=== PATIENT | male | born 1985 | race Caucasian/White ===

== ENCOUNTER 2020-06-17 20:05 | Emergency (ER) | payer MEDICAID, SELFPAY ==
[2020-06-17 20:05] VITALS: BP 117/74; PULSE 117; RESP 18; TEMP 36.4; O2SAT 97; BMI 30.2
--- NOTE | 2020-06-17 20:29 | ED.DCSUM_ITS ---
- ER Visit Summary Date of Service: 06/17/20 Chief Complaint: Abdominal pain History of Present Illness: The patient is a 35 M who presents with abdominal pain that began today. Patient states he was drinking tequila tonight and his pain has been getting progressively worse over the past 5 hours. Patient describes the pain is sharp. Patient states the pain is over the epigastric area. Patient admits to nausea and vomiting. Patient also admits to diarrhea. Patient denies any dysuria or hematuria. Patient denies any fevers or chills. Patient states the pain does radiate up into his chest. Physical Examination: Vital signs are stable except for mild tachycardia of 117. Patient is afebrile. Patient is in no acute distress. Oral mucosa is pink and moist. Neck is supple. Trachea is midline. There is no JVD. Heart was regular and tachycardic. Lungs are clear and equal bilaterally. Abdomen is soft. There is diffuse tenderness but worse over the epigastric area. There is no rebound. There is voluntary guarding. Incisions are healing well without any signs of infection. Cranial nerves II through XII are intact. There are no focal motor or sensory deficits noted. Extremities are intact. There is no calf tenderness or edema. Test Results: CBC, comprehensive metabolic profile, and lipase were obtained and were all within normal limits. Emergency Department Course and Treatment: Patient was given IV fluids and Zofran. Patient requested that no narcotics were given. Patient was given a GI cocktail. With normal lab results, I do not feel imaging is necessary at this time. Patient was instructed to avoid alcohol. Patient was given a prescription for Prilosec. Patient was instructed to follow-up with his primary care physician in 5 to 7 days. Patient was also instructed to follow-up with his surgeon as scheduled. Patient understood and was agreeable with the plan. All questions were answered. Disposition: Discharge home Impression: 1. Abdominal pain This note was generated with [employer] dictation software. It may contain incorrect words, spelling, and punctuation that were not noted in review of the chart prior to signing ED Disposition - Plan for ED Patient: Disposition: Home or Assisted Living Diagnosis: Epigastric abdominal pain of unknown etiology Instructions: ED Unknown Causes of Abdominal Pain Male, ED PEPTIC ULCER vs GASTRITIS Prescriptions: Omeprazole [Prilosec] 20 mg PO DAILY #30 cap Prescription Printed Referrals: Hubert Verdugo MD [Primary Care Provider] - 5-7 Days
[2020-06-17] MEDS: Ondansetron 4 MG/2 ML Vial IV (20:35)
[2020-06-17] MEDS: 0.9% Normal Saline 1,000 ML 1000 ML IV (20:35)
[2020-06-17 20:38] LABS: Absolute Lymphocyte Count 4.03 X10^3/uL (0.83-4.51); Absolute Neutrophil Count 5.4 X10^3/uL (2.0-7.7); Basophil# 0.09 X10^3/uL; Basophil% 0.9 % (0-1); Eosinophil# 0.09 X10^3/uL; Eosinophils% 0.9 % (0-5); Hematocrit 37.8 % (40-54); Hemoglobin 13.2 g/dL (13.0-16.5); Lymphocyte # 4.03 X10^3/ul (4.0); Lymphocyte % 38.8 % (19-41); Mean Corp Hgb Conc 34.9 g/dL (32-36); Mean Corpuscular Hgb 30.1 pg (27.0-32.0); Mean Corpuscular Volume 86.3 fL (80-94); Mean Platelet Vol. 9.1 fl (6.2-12.0); Monocyte% 5.8 % (0-10); NRBC Flagged by Analyzer 0 % (0-5); Neutrophil % 51.8 % (47-70); Platelet Count 248 K/mm3 (150-450); Red Blood Count 4.38 M/mm3 (4.6-6.2); White Blood Count 10.4 K/mm3 (4.4-11.0)
[2020-06-17 20:51] LABS: ALB/GLOB Ratio 1.1 RATIO (0.9-2.4); AST(SGOT) 19 U/L (15-37); Alanine Aminotransfer ALT/SGPT 45 U/L (16-61); Albumin, Serum 3.8 g/dL (3.2-5.0); Alkaline Phosphatase 153 U/L (45-117); Anion Gap 9 (5-15); BUN 13 mg/dL (7-18); BUN/Creat Ratio 13.8 RATIO (10-20); Calcium,Total 8.7 mg/dL (8.5-10.1); Chloride 110 mmol/L (98-107); Creatinine, Serum 0.94 mg/dL (0.70-1.30); EST Glomerular Filtration Rate 98 mL/min (>60); Est Glom Filt Rate - Afr Amer 119 mL/min (>60); Estimated Creatinine Clearance 111.77 ml/min; Globulin 3.4 g/dL (2.2-4.2); Glucose 104 mg/dL (74-106); Lipase 77 U/L (73-393); Potassium 3.8 mmol/L (3.5-5.1); Protein, Total 7.2 g/dL (6.4-8.2); Sodium Level 144 mmol/L (136-145)
[2020-06-17] MEDS: Mag Hydrox/Al Hydrox/Simeth 30 ML UDC PO (21:37)
== END 2020-06-17 21:41 | disposition home or self-care (01) ==
PROVIDERS: Emergency Provider Emergency Medicine; PCP Family Medicine
DX: K29.70 Gastritis, unspecified, without bleeding (principal); F17.210 Nicotine dependence, cigarettes, uncomplicated; Z90.49 Acquired absence of other specified parts of digestive tract; Z86.14 Personal history of Methicillin resistant Staphylococcus aureus infection
CPT/HCPCS: 80053; 83690; 85025; 96361; 96374; 99284; J7030; A4216; J2405

== ENCOUNTER 2024-10-24 20:53 | Inpatient (IN) | payer MEDICAID, SELFPAY ==
[2024-10-24 20:54] VITALS: BP 174/111; PULSE 117; RESP 18; TEMP 36.9; O2SAT 96
[2024-10-24 20:55] VITALS: BMI 29.2
--- NOTE | 2024-10-24 21:09 | EDS_ITS ---
HPI <PRATIK Alejandra - Last Filed: 10/24/24 21:55> History of Present Illness Chief Complaint: Substance Abuse Narrative Narrative: Patient presenting today requesting to detox from alcohol. He reports that he drinks a pint of vodka daily and has been drinking heavily since June. He reports that he was sober for quite some time prior to this. He reports that he last drank about an hour prior to arrival, he has had about 60 mL of vodka today. He does not feel he is currently going through withdrawal. He denies any history of withdrawal seizures. He reports occasional cocaine use and last used New Year's Alexus. He does report a PMH of anxiety, depression, and Tourette's. PFSH <PRATIK Alejandra - Last Filed: 10/24/24 21:55> PFSH Medical History GERD (gastroesophageal reflux disease) Anxiety Depression Tobacco abuse Alcohol abuse Home Medications ?Medication ?Instructions ?Recorded ?Last Taken ?Type fluoxetine 40 mg capsule 40 mg PO DAILY 06/17/20 Unknown History hydroxyzine HCl 10 mg tablet 10 mg PO PRN PRN Anxiety 06/17/20 Unknown History omeprazole 20 mg capsule,delayed 20 mg PO DAILY #30 caps 06/17/20 Unknown Rx release mirtazapine 15 mg tablet (Remeron) 50 mg PO QHS 10/24/24 Unknown History Allergy/AdvReac Type Severity Reaction Status Date / Time codeine Allergy Itching Verified 10/24/24 20:56 Social History Smoking Status: Current every day smoker tobacco type: cigarettes alcohol intake: current alcohol intake frequency: 3 or more drinks per day Alcohol type: hard liquor substance use type: crack/cocaine ROS <PRATIK Alejadnra - Last Filed: 10/24/24 21:55> ROS ED Constitutional Constitutional ED: Denies chills or fever(s) Cardiovascular Cardiovascular: Denies chest pain Respiratory/Chest Respiratory/Chest: Denies dyspnea Gastrointestinal Gastrointestinal: Denies abdominal pain, nausea or vomiting Musculoskeletal Musculoskeletal: Denies arthralgias or myalgias Integumentary Denies rash Neurologic Neurologic: Denies weakness Psychiatric Psychiatric: Reports anxiety and depression; Denies suicidal ideation or suicidal thoughts EXAM <PRATIK Alejandra - Last Filed: 10/24/24 21:55> Physical Exam Const Vital Signs: 10/24/24 20:54 Temperature 98.4 F Temperature Source Oral Pulse Rate 117 H Respiratory Rate 18 Blood Pressure 174/111 H Blood Pressure Mean 132 Pulse Ox 96 Oxygen Delivery Method Room Air Positive well nourished, well developed and no apparent distress General Appearance ED: well developed HEENT Reports normocephalic and head/scalp atraumatic Mouth ED: Yes moist mucous membranes normal Eyes PERRL and EOMs intact bilaterally Neck full ROM and supple Chest Wall inspection of chest normal Resp normal respiratory effort and clear to auscultation bilaterally Cardio regular rate and regular rhythm GI soft to palpation, non-tender, non-distended and no masses Back/Spine normal ROM and normal to inspection Extremity normal to inspection and full ROM Neuro oriented x3, CN's II-XII intact bilaterally, moves all extremities, no focal motor deficits and no sensory deficits noted Sensorium / Orientation: awake and alert Psych mental status grossly normal and thought process normal Skin no rashes or lesions noted and no wounds <Jaswant Reece MD - Last Filed: 10/24/24 22:43> Physical Exam Const Vital Signs: 10/24/24 20:54 Temperature 98.4 F Temperature Source Oral Pulse Rate 117 H Respiratory Rate 18 Blood Pressure 174/111 H Blood Pressure Mean 132 Pulse Ox 96 Oxygen Delivery Method Room Air MDM <PRATIK Alejandra - Last Filed: 10/24/24 21:55> [facility] MDM Narrative Medical decision making narrative: Patient presenting today requesting to detox from alcohol. He is a daily drinker and drinks about a pint of vodka daily, he has been drinking heavily since June. He does experience withdrawal symptoms when he does not drink consisting of tremors, nausea, and loose stools. He last drink about an hour prior to arrival and does not feel he is currently withdrawing. He denies withdrawal seizure history. He has detoxed in the past. Labs will be obtained and I will contact the hospitalist for admission. His alcohol levels is elevated at 347. His potassium is slightly low at 3.1, he will be given potassium replacement and magnesium level will be obtained. Spoke with Dr. Fermin, he will be admitted in stable condition. Lab Data Attestation: I reviewed the patient's lab results. Lab results narrative: Potassium 3.1 total bilirubin 1.4, alkaline phosphatase 129, alcohol level 347 Labs: Laboratory Results - last 24 hr 10/24/24 10/24/24 21:15 21:20 WBC 9.6 RBC 5.02 Hgb 15.4 Hct 42.4 MCV 84.5 MCH 30.7 MCHC 36.3 H RDW Std Deviation 36.0 RDW Coeff of Lokesh 11.8 Plt Count 227 MPV 8.7 Immature Gran % (Auto) 0.200 Neut % (Auto) 58.3 Lymph % (Auto) 37.0 [place] % (Auto) 3.7 Eos % (Auto) 0.2 Baso % (Auto) 0.6 Absolute Neuts (auto) 5.6 Absolute Lymphs (auto) 3.56 Nucleated RBC % 0 Sodium 141 Potassium 3.1 L Chloride 108 H Carbon Dioxide 23.0 Anion Gap 10 BUN 11 Creatinine 0.94 Estim Creat Clear Calc 122.85 Est GFR (MDRD) Af Amer 116 Est GFR (MDRD) Non-Af 96 BUN/Creatinine Ratio 11.7 Glucose 109 H Calcium 8.7 Total Bilirubin 1.40 H AST 29 ALT 47 Alkaline Phosphatase 129 H Total Protein 7.8 Albumin 4.2 Globulin 3.6 Albumin/Globulin Ratio 1.2 Urine Opiates Screen NEGATIVE Urine Methadone Screen NEGATIVE Ur Barbiturates Screen NEGATIVE Ur Phencyclidine Scrn NEGATIVE Ur Amphetamines Screen NEGATIVE MDMA (Ecstasy) Screen NEGATIVE U Benzodiazepines Scrn NEGATIVE Urine Cocaine Screen NEGATIVE U Cannabinoids Screen NEGATIVE Ur Drug Screen Comment Ethyl Alcohol 347.0 H* <Jaswant Reece MD - Last Filed: 10/24/24 22:43> MDM MDM Narrative Medical decision making narrative: Patient presenting today requesting to detox from alcohol. He is a daily drinker and drinks about a pint of vodka daily, he has been drinking heavily since June. He does experience withdrawal symptoms when he does not drink consisting of tremors, nausea, and loose stools. He last drink about an hour prior to arrival and does not feel he is currently withdrawing. He denies withdrawal seizure history. He has detoxed in the past. Labs will be obtained and I will contact the hospitalist for admission. His alcohol levels is elevated at 347. His potassium is slightly low at 3.1, he will be given potassium replacement and magnesium level will be obtained. Spoke with Dr. Fermin, he will be admitted in stable condition. Dr. Reece: I have personally performed a face to face assessment of the patient and have reviewed the MELIZA Note. I performed a substantive portion of the visit including all aspects of the following. My estrada findings include: History is patient desires detox from alcohol, states he drinks a pint of vodka daily. Exam is afebrile. Vital signs noted. Cardiovascular examination reveals mild tachycardia. Lungs are clear to auscultation bilaterally. Abdomen soft and nontender with positive bowel sounds. Neurological examination no noted tremors. No noted gooseflesh. No active signs of withdrawal. Medical Decision Making: Check labs. Potassium slightly low at 3.1 which was replaced orally. Her magnesium. Blood alcohol level elevated at 347. Admit to the general medical floor for detox. Other additions or changes: [None] Lab Data Labs: Laboratory Results - last 24 hr 10/24/24 10/24/24 21:15 21:20 WBC 9.6 RBC 5.02 Hgb 15.4 Hct 42.4 MCV 84.5 MCH 30.7 MCHC 36.3 H RDW Std Deviation 36.0 RDW Coeff of Lokesh 11.8 Plt Count 227 MPV 8.7 Immature Gran % (Auto) 0.200 Neut % (Auto) 58.3 Lymph % (Auto) 37.0 [place] % (Auto) 3.7 Eos % (Auto) 0.2 Baso % (Auto) 0.6 Absolute Neuts (auto) 5.6 Absolute Lymphs (auto) 3.56 Nucleated RBC % 0 Sodium 141 Potassium 3.1 L Chloride 108 H Carbon Dioxide 23.0 Anion Gap 10 BUN 11 Creatinine 0.94 Estim Creat Clear Calc 122.85 Est GFR (MDRD) Af Amer 116 Est GFR (MDRD) Non-Af 96 BUN/Creatinine Ratio 11.7 Glucose 109 H Calcium 8.7 Total Bilirubin 1.40 H AST 29 ALT 47 Alkaline Phosphatase 129 H Total Protein 7.8 Albumin 4.2 Globulin 3.6 Albumin/Globulin Ratio 1.2 Urine Opiates Screen NEGATIVE Urine Methadone Screen NEGATIVE Ur Barbiturates Screen NEGATIVE Ur Phencyclidine Scrn NEGATIVE Ur Amphetamines Screen NEGATIVE MDMA (Ecstasy) Screen NEGATIVE U Benzodiazepines Scrn NEGATIVE Urine Cocaine Screen NEGATIVE U Cannabinoids Screen NEGATIVE Ur Drug Screen Comment Ethyl Alcohol 347.0 H* Management Discussion w/another healthcare provider: Hospitalist Discharge Plan Dx/Rx/DC Orders Clinical Impression: Alcohol abuse, Desire for detoxification, Acute alcohol intoxication, Hypokalemia Disposition Disposition: Acute Care Hospital [facility]
[2024-10-24 21:33] LABS: Absolute Lymphocyte Count 3.56 X10^3/uL (0.83-4.51); Absolute Neutrophil Count 5.6 X10^3/uL (2.0-7.7); Basophil# 0.06 X10^3/uL; Basophil% 0.6 % (0-1); Eosinophil# 0.02 X10^3/uL; Eosinophils% 0.2 % (0-5); Hematocrit 42.4 % (40-54); Hemoglobin 15.4 g/dL (13.0-16.5); Lymphocyte # 3.56 X10^3/ul (0.83-4.51); Mean Corp Hgb Conc 36.3 g/dL (32-36); Mean Corpuscular Hgb 30.7 pg (27.0-32.0); Mean Corpuscular Volume 84.5 fL (80-94); Mean Platelet Vol. 8.7 fl (6.2-12.0); Monocyte# 0.36 X10^3/uL; Monocyte% 3.7 % (0-10); NRBC Flagged by Analyzer 0 % (0-5); Neutrophil # 5.59 X10^3/uL (2.7-7.7); Neutrophil % 58.3 % (47-70); Platelet Count 227 K/mm3 (150-450); RBC Distribution Width CV 11.8 % (11.6-14.6); Red Blood Count 5.02 M/mm3 (4.6-6.2); White Blood Count 9.6 K/mm3 (4.4-11.0)
[2024-10-24 21:48] LABS: Amphetamine Urine VISTA NEGATIVE (<1000 ng/mL); Barbiturate Urine VISTA NEGATIVE (< 200 ng/mL); Benzodiazepine Urine VISTA NEGATIVE (< 200 ng/mL); Cocaine Urine VISTA NEGATIVE (< 300 ng/mL); Ecstacy Urine VISTA NEGATIVE (< 500 ng/mL); Methadone Urine VISTA NEGATIVE (< 300 ng/mL); PCP Urine VISTA NEGATIVE (< 25 ng/mL); THC Urine VISTA NEGATIVE (< 50 ng/mL); Vista UDS pH Range 6
[2024-10-24 21:50] LABS: ALB/GLOB Ratio 1.2 RATIO (0.9-2.4); AST(SGOT) 29 U/L (15-37); Alanine Aminotransfer ALT/SGPT 47 U/L (16-61); Albumin, Serum 4.2 g/dL (3.2-5.0); Alkaline Phosphatase 129 U/L (45-117); Anion Gap 10 (5-15); BUN 11 mg/dL (7-18); BUN/Creat Ratio 11.7 RATIO (10-20); Calcium,Total 8.7 mg/dL (8.5-10.1); Chloride 108 mmol/L (98-107); Creatinine, Serum 0.94 mg/dL (0.70-1.30); EST Glomerular Filtration Rate 96 mL/min (>60); Est Glom Filt Rate - Afr Amer 116 mL/min (>60); Estimated Creatinine Clearance 122.85 ml/min; Globulin 3.6 g/dL (2.2-4.2); Glucose 109 mg/dL (74-106); Potassium 3.1 mmol/L (3.5-5.1); Protein, Total 7.8 g/dL (6.4-8.2); Sodium Level 141 mmol/L (136-145)
--- NOTE | 2024-10-24 22:27 | HP.PCM.HOS_ITS ---
HPI - General General Date of Service: 10/24/24 Chief Complaint: EtOH detox HPI Narrative SHARMILA MCBRIDE, is a 39 M who presented to the emergency department at [facility] on 10/24/2024 requesting detox from alcohol. Patient reported that he drinks about a pint of vodka daily and has been drinking heavily since about June. Patient reported that he was sober for quite a period of time prior to this. His last drink was about an hour prior to presentation at which time he had about 60 mL of vodka. At the time of presentation he denied any withdrawal symptoms. He denies a history of withdrawal seizures and does report also some occasional cocaine use with his last use being on 's Alexus. He does have a history of Tourette's, anxiety, and depression. He also uses tobacco on a regular basis by smoking cigarettes. Vital signs on presentation showed a temperature of 98.4, heart rate was 117, blood pressure was 174/111, respiratory was 18 and pulse ox was 96% on room air. CBC was unremarkable. Chemistry panel showed mild hypokalemia with a potassium of 3.1 but was otherwise unremarkable. Bilirubin was elevated 1.4 with normal liver function enzymes otherwise. Toxicology screen was negative. As alcohol level was 347.0. He was given 1 dose of oral phenobarbital in the emergency department and given 40 mill colons p.o. potassium. Magnesium level was added on when potassium level was found to be low and is pending at the time of admission. [facility] Medical History GERD (gastroesophageal reflux disease) Anxiety Depression Tobacco abuse Alcohol abuse Home Medications ?Medication ?Instructions ?Recorded ?Last Taken ?Type fluoxetine 40 mg capsule 40 mg PO DAILY 06/17/20 Unknown History hydroxyzine HCl 10 mg tablet 10 mg PO PRN PRN Anxiety 06/17/20 Unknown History omeprazole 20 mg capsule,delayed 20 mg PO DAILY #30 caps 06/17/20 Unknown Rx release mirtazapine 15 mg tablet (Remeron) 50 mg PO QHS 10/24/24 Unknown History Allergy/AdvReac Type Severity Reaction Status Date / Time codeine Allergy Itching Verified 10/24/24 20:56 no significant family history Surgical History (Updated 10/24/24 @ 22:[address] Mahsa Fermin, DO) History of cholecystectomy Social History (Updated 10/24/24 @ 22:[address] Mahsa Fermin DO) Smoking Status: Current every day smoker tobacco type: cigarettes alcohol intake: current alcohol intake frequency: 3 or more drinks per day Alcohol type: hard liquor substance use type: marijuana and crack/cocaine ROS Constitutional Constitutional: Reports malaise; Denies anorexia, change in weight, chills, fatigue, fever(s), night sweats, weakness or other Eyes Eyes: Denies blurry vision, change in eye color, change in vision, discharge from eye(s), double vision, erythema, eye pain, loss of vision or other ENT HEENT: Denies abnormal hearing, dysphagia, ear pain, epistaxis, headache(s), hearing loss, nasal congestion, nasal discharge, post nasal drip, sinus pressure, sore throat or other Cardiovascular Cardiovascular: Denies chest pain, claudication, dyspnea on exertion, edema, lightheadedness, orthopnea, palpitations, paroxysmal nocturnal dyspnea, rapid heart rate, syncope or other Respiratory/Chest Respiratory/Chest: Denies cough, dyspnea, excessive phlegm production, hemoptysis, productive cough, shortness of breath at rest, shortness of breath with exertion, wheezing or other Gastrointestinal Gastrointestinal: Reports nausea; Denies abdominal pain, coffee ground emesis, constipation, diarrhea, dyspepsia, hematemesis, hematochezia, loose stools, melena, vomiting or other Genitourinary Genitourinary: Denies burning urination, difficulty urinating, dysuria, hematuria, nocturia, urinary frequency, urinary hesitancy, urinary incontinence, urinary urgency or other Musculoskeletal Musculoskeletal: Reports myalgias; Denies arthralgias, back pain, joint pain, joint stiffness, joint swelling, neck pain or other Neurologic Neurologic: Denies abnormal gait, abnormal speech, confusion, disequilibrium, dizziness, focal weakness, headache(s), numbness, paresthesias, seizure-like activity, seizures, syncope, tingling, tremor(s) or other Psychiatric Psychiatric: Reports anxiety and depression; Denies homicidal ideation, suicidal ideation or other Endocrine Endocrinology: Denies change in body appearance, cold intolerance, excessive sweating, heat intolerance, polydipsia, polyuria or other Hematologic/Lymphatic Hematologic/Lymphatic: Denies anemia, easy bleeding, easy bruising, lymphadenopathy or other Allergic/Immunologic Allergic/Immunologic: Denies rhinitis, hives, eczemia, asthma or other Vital Signs Vital Signs Vital Signs: 10/24/24 20:54 Temperature 98.4 F Temperature Source Oral Pulse Rate 117 H Respiratory Rate 18 Blood Pressure 174/111 H Blood Pressure Mean 132 Pulse Ox 96 Oxygen Delivery Method Room Air Weight Weight: 92.3 kg Body Mass Index (BMI) 29.2 Physical Exam Const alert, oriented x3, no apparent distress and well nourished; Negative for average body habitus Constitutional Narrative: Overweight, middle-aged, white male, lying in bed, appears anxious, father at bedside, does not appear toxic General Appearance: cooperative HEENT normocephalic, head/scalp atraumatic, hearing grossly normal bilaterally and moist oral mucous membranes HEENT Narrative: Mallampati 3, no thrush Resp normal respiratory effort, no retractions, no use of accessory muscles and clear to auscultation bilaterally Auscultation: Negative for rales, rhonchi or wheezes Cardio regular rate, regular rhythm, S1 normal heart sound, S2 normal heart sound, no murmurs, no rub, no gallops and no clicks GI normal to inspection, nondistended, normoactive bowel sounds, soft to palpation and non-tender Extremity no clubbing, cyanosis or edema Extremity Narrative: Pedal pulses are 2+ Neuro oriented x3, moves all extremities and no focal motor deficits Speech: speech normal Psych Psych Narrative: Affect is flat, mood seems somewhat depressed but patient makes good eye contact Results Lab / Micro Data 10/24/24 21:20 10/24/24 21:20 Labs: Laboratory Results - last 24 hr 10/24/24 21:15: Urine Opiates Screen NEGATIVE, Urine Methadone Screen NEGATIVE, Ur Barbiturates Screen NEGATIVE, Ur Phencyclidine Scrn NEGATIVE, Ur Amphetamines Screen NEGATIVE, MDMA (Ecstasy) Screen NEGATIVE, U Benzodiazepines Scrn NEGATIVE, Urine Cocaine Screen NEGATIVE, U Cannabinoids Screen NEGATIVE, Ur Drug Screen Comment 10/24/24 21:20: WBC 9.6, RBC 5.02, Hgb 15.4, Hct 42.4, MCV 84.5, MCH 30.7, MCHC 36.3 H, RDW Std Deviation 36.0, RDW Coeff of Lokesh 11.8, Plt Count 227, MPV 8.7, Immature Gran % (Auto) 0.200, Neut % (Auto) 58.3, Lymph % (Auto) 37.0, [place] % (Auto) 3.7, Eos % (Auto) 0.2, Baso % (Auto) 0.6, Absolute Neuts (auto) 5.6, Absolute Lymphs (auto) 3.56, Nucleated RBC % 0, Sodium 141, Potassium 3.1 L, C hloride 108 H, Carbon Dioxide 23.0, Anion Gap 10, BUN 11, Creatinine 0.94, Estim Creat Clear Calc 122.85, Est GFR (MDRD) Af Amer 116, Est GFR (MDRD) Non-Af 96, BUN/Creatinine Ratio 11.7, Glucose 109 H, Calcium 8.7, Total Bilirubin 1.40 H, AST 29, ALT 47, Alkaline Phosphatase 129 H, Total Protein 7.8, Albumin 4.2, Globulin 3.6, Albumin/Globulin Ratio 1.2, Ethyl Alcohol 347.0 H* Assessment & Plan Assessment/Plan (1) Hypokalemia: (2) Acute alcohol intoxication: (3) Desire for detoxification: (4) Alcohol abuse: (5) Elevated blood pressure reading: (6) Tachycardia: PLAN: Plan Acute alcohol intoxication with desire for detoxification and pending withdrawal -Alcohol level on presentation was 347 -CIWA with as needed Ativan -Phenobarbital taper as ordered -Thiamine and folate -As needed medication for assistance with withdrawal symptom management -180 consultation Hypokalemia -Potassium replacement with 40 mill equivalents p.o. -Repeat lab in a.m. -Magnesium level is pending Tachycardia -Likely related to the above -Monitor Elevated blood pressure without history of hypertension -Suspect related to pending withdrawal symptoms -Will continue to monitor -As needed hydralazine available for systolic greater than 150 Tobacco abuse -Recommend cessation -Nicotine patch available Polysubstance abuse -Patient reports he also intermittently will use other substances -Last use of cocaine was on New Year's Alexus which she does use intermittently -Also uses marijuana intermittently but states this predominantly makes him paranoid so he avoids it typically GERD -Continue home PPI Anxiety/depression -Continue home fluoxetine -Continue mirtazapine -Continue as needed hydroxyzine DVT prophylaxis -Low risk -Encourage early and frequent ambulation CODE STATUS -Full code Charges/Coding Visit Charges Inpatient E&M: 87561 Init Hosp L2
[2024-10-24] MEDS: Potassium Chloride Oral Tablet 20 MEQ 40 MEQ PO (22:36)
[2024-10-24 22:50] LABS: Magnesium 2.2 mg/dL (1.6-2.6)
[2024-10-24 22:54] VITALS: PULSE 118
[2024-10-24 23:17] VITALS: BP 150/100; PULSE 116; RESP 18; TEMP 36.7; O2SAT 99
[2024-10-24 23:49] VITALS: BP 131/92; PULSE 114; RESP 18; TEMP 36.6; O2SAT 98
[2024-10-24 23:51] VITALS: BMI 27.8
[2024-10-25] VITALS (7 sets, daily range): BP systolic 119–165; BP diastolic 76–108; PULSE 63–110; RESP 16–18; TEMP 36.4–37; O2SAT 94–99
[2024-10-25] MEDS: 0.9% Saline Lock 10 ML Syringe IV (00:14)
[2024-10-25] MEDS: 0.9% Normal Saline (1000mL) 1,000 ML 100 ML IV (00:15)
[2024-10-25] MEDS: Phenobarbital 32.4 MG Tablet 97.2 MG PO ×5 (00:17→15:22)
[2024-10-25] MEDS: hydrOXYzine PAM 25 MG Capsule 50 MG PO ×2 (00:17→07:29)
[2024-10-25] MEDS: Gabapentin 300 MG Capsule PO ×2 (01:11→10:15)
[2024-10-25 07:23] LABS: Anion Gap 8 (5-15); BUN 9 mg/dL (7-18); BUN/Creat Ratio 10.3 RATIO (10-20); Calcium,Total 7.9 mg/dL (8.5-10.1); Chloride 108 mmol/L (98-107); Creatinine, Serum 0.88 mg/dL (0.70-1.30); EST Glomerular Filtration Rate 104 mL/min (>60); Est Glom Filt Rate - Afr Amer 126 mL/min (>60); Estimated Creatinine Clearance 124.49 ml/min; Glucose 108 mg/dL (74-106); Potassium 3.1 mmol/L (3.5-5.1); Sodium Level 140 mmol/L (136-145)
[2024-10-25] MEDS: Folic Acid 1 MG Tablet PO (07:24)
[2024-10-25] MEDS: Pantoprazole Sodium 20 MG Tablet PO (07:25)
[2024-10-25] MEDS: Fluoxetine HCl 40 MG CAPSULE PO (07:25)
[2024-10-25] MEDS: Thiamine Hydrochloride 100 MG Tablet PO (07:25)
[2024-10-25] MEDS: Potassium Chloride Oral Tablet 20 MEQ 40 MEQ PO (09:08)
[2024-10-25] MEDS: Ondansetron 8 MG Tablet PO (10:15)
[2024-10-25] MEDS: LORazepam 1 MG Tablet 2 MG PO (11:18)
--- NOTE | 2024-10-25 13:25 | PN_ITS ---
Subjective Subjective Patient seen and examined. He had no complaints and had an uneventful night. Review of systems otherwise negative. She has remained hemodynamically stable. He denies any withdrawal symptoms. Objective Data Objective Data Vital Signs: Vital Signs Temp Pulse Resp BP Pulse Ox O2 Del Method 97.5 F L 88 16 160/86 H 94 Room Air 10/25/24 12:49 10/25/24 12:49 10/25/24 12:49 10/25/24 12:49 10/25/24 13:17 10/25/24 13:17 Oxygen Delivery Method Room Air Weight: 188 lb 4.396 oz Body Mass Index (BMI) 27.8 Intake & Output: Intake and Output for Last 24 Hours 10/23/24 10/24/24 10/25/24 23:59 23:59 23:59 Intake Total 1478.33 / 1478.33 Balance 1478.33 / 1478.33 Medical Nutrition Assessment Dietitian: Malnutrition Criteria Met Start: 10/25/24 11:23 Freq: Status: Active Protocol: Document 10/25/24 11:23 RADHIKA (Rec: 10/25/24 11:23 SLA [id number]) Nutrition Malnutrition Evidence of Malnutrition Exists Yes Malnutrition (severe): Social/Behavioral/ Environmental Clinical Problem Acute Disease or Injury Related Malnutrition Etiology related to etoh abuse Signs/Symptoms as evidenced by 6% unintended wt loss and po intake meeting <50% of 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 Recommendation Dietitian Recommendations/Changes Continue liberal regular diet Continue 4 oz ensure plus tid w/ medpass Lab / Micro Data 10/24/24 21:20 10/25/24 06:22 Labs: Laboratory Results - last 24 hr 10/24/24 21:15: Urine Opiates Screen NEGATIVE, Urine Methadone Screen NEGATIVE, Ur Barbiturates Screen NEGATIVE, Ur Phencyclidine Scrn NEGATIVE, Ur Amphetamines Screen NEGATIVE, MDMA (Ecstasy) Screen NEGATIVE, U Benzodiazepines Scrn NEGATIVE, Urine Cocaine Screen NEGATIVE, U Cannabinoids Screen NEGATIVE, Ur Drug Screen Comment 10/24/24 21:20: WBC 9.6, RBC 5.02, Hgb 15.4, Hct 42.4, MCV 84.5, MCH 30.7, MCHC 36.3 H, RDW Std Deviation 36.0, RDW Coeff of [place] 11.8, Plt Count 227, MPV 8.7, Immature Gran % (Auto) 0.200, Neut % (Auto) 58.3, Lymph % (Auto) 37.0, [place] % (Auto) 3.7, Eos % (Auto) 0.2, Baso % (Auto) 0.6, Absolute Neuts (auto) 5.6, Absolute Lymphs (auto) 3.56, Nucleated RBC % 0, Sodium 141, Potassium 3.1 L, C hloride 108 H, Carbon Dioxide 23.0, Anion Gap 10, BUN 11, Creatinine 0.94, Estim Creat Clear Calc 122.85, Est GFR (MDRD) Af Amer 116, Est GFR (MDRD) Non-Af 96, BUN/Creatinine Ratio 11.7, Glucose 109 H, Calcium 8.7, Magnesium 2.2, Total Bilirubin 1.40 H, AST 29, ALT 47, Alkaline Phosphatase 129 H, Total Protein 7.8, Albumin 4.2, Globulin 3.6, Albumin/Globulin Ratio 1.2, Ethyl Alcohol 347.0 H* 10/25/24 06:22: Sodium 140, Potassium 3.1 L, Chloride 108 H, Carbon Dioxide 23.0, Anion Gap 8, BUN 9, Creatinine 0.88, Estim Creat Clear Calc 124.49, Est GFR (MDRD) Af Amer 126, Est GFR (MDRD) Non-Af 104, BUN/Creatinine Ratio 10.3, G lucose 108 H, Calcium 7.9 L Physical Exam Const alert, oriented x3, no apparent distress and well nourished General Appearance: cooperative and well developed HEENT normocephalic, head/scalp atraumatic, moist oral mucous membranes and oropharynx normal Eyes PERRL and EOMs intact bilaterally Neck no lymphadenopathy, supple and no JVD Lymph Lymphatic: no lymphadenopathy noted and no lymphedema noted Resp normal respiratory effort, normal air movement and clear to auscultation bilaterally Cardio regular rate, regular rhythm, S1 normal heart sound, S2 normal heart sound and no murmurs GI normal to inspection, nondistended, normoactive bowel sounds, soft to palpation, non-tender and non-distended Extremity normal capillary refill, no clubbing, cyanosis or edema and no calf tenderness General Extremity: no tenderness to palpation of joints or extremities Skin General Skin Exam: no breakdown Neuro CN's II-XII intact bilaterally, no focal motor deficits and no sensory deficits noted Motor Exam: strength 5/5 throughout and general weakness Psych thought process normal and cooperative Appearance: appropriate Assessment & Plan Assessment/Plan (1) Acute alcohol intoxication: PLAN: Plan #Acute alcohol intoxication with desire for detox * At risk of withdrawal. On alcohol drawl protocol with phenobarbital. * CIWA protocol as ordered. On thiamine, folic acid and Multi-Emelia. * Adjunctive meds for symptomatic relief. * #Hypokalemia: Potassium is 3.1 today. Will replace and trend. #Elevated blood pressure: Resolved. # Nicotine dependence: Counseled to quit. Nicotine patch 21 mg daily #History of polysubstance abuse: Says intermittently uses other drugs like cocaine and marijuana. Counseled to quit #GERD: On PPI #Anxiety and depression: On fluoxetine, mirtazapine and hydroxyzine. #DVT prophylaxis: Encourage ambulation. He is low risk. Charges/Coding Visit Charges Inpatient E&M: 92640 Subs Hosp L2
--- NOTE | 2024-10-25 19:58 | NURSING ---
This RN walked in the room, and pt is not in the room. The zip ties have been removed from the tote and it is empty. The IV was found in the trash can.
--- NOTE | 2024-10-25 21:44 | DS.PCM_ITS ---
Providers Date of Admission: 10/24/24 Date of Discharge: 10/25/24 Primary Care Physician: Dr. Hubert Verdugo MD Reason For Visit: ETOH DETOX Diagnosis Discharge Diagnosis (1) Acute alcohol intoxication: Status: Acute Code(s): F10.929 - Alcohol use, unspecified with intoxication, unspecified Plan #Acute alcohol intoxication with desire for detox * At risk of withdrawal. On alcohol drawl protocol with phenobarbital. * CIWA protocol as ordered. On thiamine, folic acid and Multi-Emelia. * Adjunctive meds for symptomatic relief. * #Hypokalemia: Potassium is 3.1 today. Will replace and trend. #Elevated blood pressure: Resolved. # Nicotine dependence: Counseled to quit. Nicotine patch 21 mg daily #History of polysubstance abuse: Says intermittently uses other drugs like cocaine and marijuana. Counseled to quit #GERD: On PPI #Anxiety and depression: On fluoxetine, mirtazapine and hydroxyzine. #DVT prophylaxis: Encourage ambulation. He is low risk. Medications at Discharge Home Medications fluoxetine 40 mg capsule 40 mg PO DAILY 06/17/20 hydroxyzine HCl 10 mg tablet 10 mg PO PRN PRN Anxiety 06/17/20 omeprazole 20 mg capsule,delayed release 20 mg PO DAILY #30 caps 06/17/20 mirtazapine 15 mg tablet (Remeron) 50 mg PO QHS 10/24/24 Hospital Course Operations None Procedures None Summary of Care Provided Minutes Spent on Discharge: 45 Hospital Course: Patient is a 39-year-old male with past medical history as outlined was admitted through the ED on 10/24/2024 for detox from alcohol. He drank about a pint of vodka daily and had been drinking heavily for about 3 months, since June. His last drink was about an hour prior to admission when he had 60 mL of vodka. He denied any withdrawal symptoms and denied any history of withdrawal seizures. He also admitted to occasional cocaine use. Labs were essentially remarkable for mild hypokalemia with potassium of 3.1. Bilirubin was slightly elevated at 1.4 but liver function tests were otherwise normal. Urine tox screen was negative and serum alcohol level was 347. He was admitted and managed for acute alcohol withdrawal. He was placed on alcohol withdrawal protocol with phenobarbital and CIWA score was also monitored. Patient was doing well and he was agreeable to staying. However patient signed out AGAINST MEDICAL ADVICE on the evening of 10/25/2023. Patient was seen on 10/25/2023 and at time of review in the morning he had no active complaints. Review of systems otherwise negative. As stated patient subsequently decided to sign out AGAINST MEDICAL ADVICE. Physical Exam Const alert, oriented x3, no apparent distress, average body habitus and well nourished General Appearance: cooperative, comfortable, well kempt and well developed Orientation / Consciousness: awake Exam Limitations: no limitations HEENT normocephalic, head/scalp atraumatic, hearing grossly normal bilaterally, moist oral mucous membranes and oropharynx normal Mouth: oral and palatal mucosa normal Eyes PERRL and EOMs intact bilaterally Neck no lymphadenopathy, supple and no JVD Lymph Lymphatic: no lymphadenopathy noted and no lymphedema noted Resp normal respiratory effort, normal air movement, no retractions, no use of accessory muscles and clear to auscultation bilaterally Auscultation: Negative for rales, rhonchi or wheezes Cardio regular rate, regular rhythm, S1 normal heart sound, S2 normal heart sound, no murmurs, no rub, no gallops and no clicks GI normal to inspection, nondistended, normoactive bowel sounds, soft to palpation, non-tender and non-distended Extremity normal to inspection, full ROM, normal capillary refill, no clubbing, cyanosis or edema and no calf tenderness Extremity Narrative: Pedal pulses are 2+ General Extremity: no tenderness to palpation of joints or extremities Skin no rashes or lesions noted General Skin Exam: no breakdown Neuro oriented x3, CN's II-XII intact bilaterally, moves all extremities, no focal motor deficits and no sensory deficits noted Sensorium / Orientation: awake Speech: speech normal Motor Exam: strength 5/5 throughout and general weakness Psych thought process normal and cooperative Appearance: appropriate Weight / BMI Weight Weight: 188 lb 4.396 oz Body Mass Index (BMI) 27.8 ABG / Lab / Microbiology Data 10/24/24 21:20 10/25/24 06:22 Laboratory: Laboratory Results - last 24 hr 10/24/24 21:15: Urine Opiates Screen NEGATIVE, Urine Methadone Screen NEGATIVE, Ur Barbiturates Screen NEGATIVE, Ur Phencyclidine Scrn NEGATIVE, Ur Amphetamines Screen NEGATIVE, MDMA (Ecstasy) Screen NEGATIVE, U Benzodiazepines Scrn NEGATIVE, Urine Cocaine Screen NEGATIVE, U Cannabinoids Screen NEGATIVE 10/24/24 21:20: Sodium 141, Potassium 3.1 L, Chloride 108 H, Carbon Dioxide 23.0, Anion Gap 10, BUN 11, Creatinine 0.94, Estim Creat Clear Calc 122.85, Est GFR (MDRD) Af Amer 116, Est GFR (MDRD) Non-Af 96, BUN/Creatinine Ratio 11.7, G lucose 109 H, Calcium 8.7, Magnesium 2.2, Total Bilirubin 1.40 H, AST 29, ALT 47, Alkaline Phosphatase 129 H, Total Protein 7.8, Albumin 4.2, Globulin 3.6, Albumin/Globulin Ratio 1.2, Ethyl Alcohol 347.0 H* 10/25/24 06:22: Sodium 140, Potassium 3.1 L, Chloride 108 H, Carbon Dioxide 23.0, Anion Gap 8, BUN 9, Creatinine 0.88, Estim Creat Clear Calc 124.49, Est GFR (MDRD) Af Amer 126, Est GFR (MDRD) Non-Af 104, BUN/Creatinine Ratio 10.3, G lucose 108 H, Calcium 7.9 L D/C Instructions Discharge Diet: Low fat / Low cholesterol Discharge Activity: Return to Normal Activity Weight Bearing Status: Weight bearing as tolerated DC O2, CPAP, BIPAP Needs Home O2 Discharge instructions: No DC home with Oxygen: No Meaningful Use Info Meaningful Use Meaningful Use Diagnoses (Choose all that apply): None applicable Ischemic Stroke Statin Dosing Therapy Reference: STATIN DOSE THERAPY REFERENCE: * Patients > 75 years receive moderate or high dose statin therapy. * Patients 75 years or YOUNGER should receive HIGH intensity statin dose unless contraindicated. You will be required to document reason for non-treatment if statin daily dose does not meet guidelines. HIGH DOSE STATIN THERAPY DAILY Atorvastatin > than or = to 40 mg Rosuvastatin > than or = to 20 mg Amlodipine + Atorvastatin > than or = to 2.5/40 mg Ezetimibe + Simvastatin 10/80 mg Simvastatin 80mg Discharge Plan Admission Admit Date/Time: 10/24/24 22:21 Primary Reason for Your Visit: acute alcohol withdrawal Attending Provider: Irene Duckworth Primary Care Provider: Hubert Verdugo Consulting Providers: Mahsa Fermin Discharge Orders/Prescriptions Prescriptions: No Action fluoxetine 40 MG capsule 40 mg PO DAILY hydroxyzine HCl 10 MG tablet 10 mg PO PRN PRN (Reason: Anxiety) omeprazole 20 MG capsule 20 mg PO DAILY Qty: 30 0RF mirtazapine [Remeron] 15 mg tablet 50 mg PO QHS Referrals / Follow Up: Hubert Verdugo MD [Primary Care Provider] - Disposition Disposition (needs filled in before D/C Order can be placed): Against Medical Advice Charges/Coding Visit Charges Inpatient E&M: 50805 Disch Hosp >30min
== END 2024-10-25 20:01 | disposition left against medical advice (07) | DRG 770 ==
LOC: ED 21:59 → MS3 10-25 03:57
PROVIDERS: Physician Assistant; Admitting Provider Internal Medicine; Emergency Provider Emergency Medicine; PCP Family Medicine; Referring Provider Internal Medicine; Visit Provider Student in an Organized Health Care Education/Training Program
DX: F10.129 Alcohol abuse with intoxication, unspecified (principal); E43 Unspecified severe protein-calorie malnutrition; F32.A Depression, unspecified; E87.6 Hypokalemia; K21.9 Gastro-esophageal reflux disease without esophagitis; F12.90 Cannabis use, unspecified, uncomplicated; F14.90 Cocaine use, unspecified, uncomplicated; F41.9 Anxiety disorder, unspecified; F17.200 Nicotine dependence, unspecified, uncomplicated; R03.0 Elevated blood-pressure reading, without diagnosis of hypertension; Y90.8 Blood alcohol level of 240 mg/100 ml or more; Z68.29 Body mass index [BMI] 29.0-29.9, adult
CPT/HCPCS: 36415; 80048; 80053; 80307; 82077; 83735; 85025; 94668; 97802; 99252; 99283; 99406; A4216; G0463